=== PATIENT | male | born 1990 | race African-American/Black ===

== ENCOUNTER 2019-02-11 01:47 | Emergency (ER) | payer MEDICAID ==
[~2019-02-11] VITALS: Ht 170.2 cm; Wt 55.3 kg
[2019-02-11 02:00] VITALS: BP 132/64
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
[2019-02-11] MEDS ORDERED: OXYCODONE-ACET1 EAC5 ORAL (02:33)
[2019-02-11 03:00] VITALS: BP 132/64
--- NOTE | 2019-02-11 11:18 | Diagnostic Imaging Report ---
Clinical Indication:Left wrist pain, status post recent surgery Technique: 3 views of the left wrist Comparison: None Findings: There is a splint in place, which may obscure bony detail. Plate and screws are seen reducing comminuted distal radial fracture. The hardware appears to be intact. The fracture fragments appear to be well aligned. Small amount of gas within the soft tissues is presumably related to the surgical exposure. There is an associated ulnar styloid fracture. No definite carpal fracture demonstrated. There is old healed fracture deformity of the base of the first metacarpal Impression: Postsurgical and posttraumatic changes, as described No definite acute bony trauma
== END 2019-02-11 03:00 | disposition home or self-care (01) ==
LOC: EDBD 01:47 → EMR 02:03
DX: G89.18 Other acute postprocedural pain (principal); M25.532 Pain in left wrist
CPT/HCPCS: 73110; 96372; 99283; J1170